=== PATIENT | male | born 1985 | race Hispanic/Latino ===

== ENCOUNTER 2016-09-28 11:56 | Inpatient (IN) | payer BC ==
--- NOTE | 2016-09-28 13:09 | ED PDOC ---
HPI: General Adult Time Seen by Provider: 09/28/16 12:32 Chief Complaint (Nursing): Fever Chief Complaint (Provider): Fever/Body Aches/Nausea/Headache History Per: Patient History/Exam Limitations: no limitations Onset/Duration Of Symptoms: Days (x3) Current Symptoms Are (Timing): Still Present Additional Complaint(s): Nate Marrero is a 31 year old male that presents to the ED with a chief complaint of a fever that e has been experiencing for the past three days, which was 103.5 degrees Fahrenheit at its highest point. Patient reports that this morning he also woke up with the "worst headache of his life," along with associated nausea, photophobia, and neck pain. Patient reports that his came to the ED a few days ago and was told that she may have viral meningitis, but deferred her lumbar puncture. Past Medical History Reviewed: Historical Data, Nursing Documentation, Vital Signs Vital Signs: Last Vital Signs Temp 98.4 F 09/28/16 14:07 Pulse 70 09/28/16 12:26 Resp 19 09/28/16 12:26 BP 123/64 09/28/16 12:26 Pulse Ox 99 09/28/16 13:13 - Family History Family History: States: Unknown Family Hx - Allergies Allergies/Adverse Reactions: Allergies Allergy/AdvReac Type Severity Reaction Status Date / Time No Known Allergies Allergy Verified 09/28/16 12:26 Review of Systems Constitutional: Positive for: Fever (highest temp 103.5, x3 days) Eyes: Positive for: Other (Photophobia) Gastrointestinal: Positive for: Nausea Musculoskeletal: Positive for: Neck Pain Neurological: Positive for: Headache Physical Exam - Reviewed Nursing Documentation Reviewed: Yes Vital Signs Reviewed: Yes - Physical Exam Appears: Positive for: Non-toxic, In Acute Distress Head Exam: Positive for: ATRAUMATIC, NORMOCEPHALIC Skin: Positive for: Normal Color, Warm Eye Exam: Positive for: Normal appearance Neck: Negative for: Normal ((+) nuchal rigidity) Cardiovascular/Chest: Positive for: Regular Rate, Rhythm. Negative for: Murmur Respiratory: Positive for: Normal Breath Sounds. Negative for: Wheezing Gastrointestinal/Abdominal: Positive for: Normal Exam, Soft. Negative for: Tenderness Neurologic/Psych: Positive for: Alert, Oriented. Negative for: Motor/Sensory Deficits - Laboratory Results Result Diagrams: 09/28/16 13:30 09/28/16 13:30 - ECG O2 Sat by Pulse Oximetry: 99 (RA) Pulse Ox Interpretation: Normal Medical Decision Making Medical Decision Making: Impression: Meningitis Plan: * Head CT w/o contrast * Chest X-Ray * CMP * CBC * Blood Culture * Flu Swab * Rapid Strep * Isolation Type Q12 * Morphine 4 mg IV * Zofran 4 mg IV Pt reports continued pain - Head CT negative. Toradol 15mg ordered. 1545 - Endorsed to Tony Gastelum PA-C and transferred to room 24. Scribe Attestation: Documented by Basilia Painter, acting as a scribe for Ila Polk PA-C. Provider Scribe Attestation: All medical record entries made by the Scribe were at my direction and personally dictated by me. I have reviewed the chart and agree that the record accurately reflects my personal performance of the history, physical exam, medical decision making, and the department course for this patient. I have also personally directed, reviewed, and agree with the discharge instructions and disposition. Disposition - Clinical Impression Clinical Impression: Fever - Patient ED Disposition Is Patient to be Admitted: Transfer of Care - Disposition Disposition: Transfer of Care Disposition Time: 15:58 Condition: STABLE
--- NOTE | 2016-09-28 13:29 | CT ---
PROCEDURE: CT HEAD WITHOUT CONTRAST. HISTORY: headache, neck pain COMPARISON: None available. TECHNIQUE: Axial computed tomography images were obtained through the head/brain without intravenous contrast. Radiation dose: Total exam DLP = 971.14 mGy-cm. This CT exam was performed using one or more of the following dose reduction techniques: Automated exposure control, adjustment of the mA and/or kV according to patient size, and/or use of iterative reconstruction technique. FINDINGS: HEMORRHAGE: No intracranial hemorrhage. BRAIN: No mass effect or edema. No atrophy or chronic microvascular ischemic changes.Please note that MRI with diffusion imaging is more sensitive in the detection of acute ischemic event. VENTRICLES: No hydrocephalus. CALVARIUM: Unremarkable. PARANASAL SINUSES: Unremarkable as visualized. No significant inflammatory changes. MASTOID AIR CELLS: Unremarkable as visualized. No inflammatory changes. OTHER FINDINGS: None. IMPRESSION: No acute intracranial pathology identified.
[2016-09-28] MEDS ORDERED: Sodium Chloride 0.9% 1,000 ML IV STA ×2 (13:32→17:12)
[2016-09-28 14:08] LABS: BASO % 0.4 % (0.0-2.0); EOS # 0.1 K/uL (0.0-0.7); EOS % 0.8 % (0.0-4.0); HEMATOCRIT 42.2 % (35.0-51.0); LYMPH # 0.6 K/uL (1.0-4.3); LYMPH % 8.7 % (20.0-40.0); MEAN CELL VOLUME 88.9 fl (80.0-94.0); MEAN CORPUSCULAR HEMOGLOBIN 30.5 pg (27.0-31.0); MEAN CORPUSCULAR HGB CONC 34.3 g/dL (33.0-37.0); MEAN PLATELET VOLUME 8.3 fl (7.2-11.7); MONO # 0.5 K/uL (0.0-0.8); MONO % 8.2 % (0.0-10.0); NEUT # 5.4 K/uL (1.8-7.0); NEUT % 81.9 % (50.0-75.0); PLATELET COUNT 193 K/uL (130-400); RED CELL DISTRIBUTION WIDTH 12.7 % (11.5-14.5); WHITE BLOOD COUNT 6.6 K/uL (4.8-10.8)
[2016-09-28 14:20] LABS: ALB/GLOB RATIO 1.5 (1.0-2.1); ALKALINE PHOSPHATASE 46 U/L (38-126); ALT/SGPT 47 U/L (21-72); AST/SGOT 32 U/L (17-59); BILIRUBIN,TOTAL 0.7 mg/dl (0.2-1.3); BLOOD UREA NITROGEN 11 mg/dl (9-20); CALCIUM 9.6 mg/dL (8.4-10.2); CARBON DIOXIDE 29 mmol/L (22-30); CHLORIDE 100 mmol/L (98-107); GFR AFRICAN-AMERICAN > 60; GLUCOSE,RANDOM 92 mg/dL (75-110); POTASSIUM 3.9 MMOL/L (3.6-5.0); SODIUM 141 mmol/l (132-148); TOTAL PROTEIN 8.2 G/DL (6.3-8.2)
--- NOTE | 2016-09-28 15:02 | RAD ---
HISTORY: fever COMPARISON: None available. TECHNIQUE: Chest, one view. FINDINGS: LUNGS: No focal consolidation. Please note that chest x-ray has limited sensitivity for the detection of pulmonary masses. PLEURA: No significant pleural effusion identified. No definite pneumothorax . CARDIOVASCULAR: The cardiomediastinal silhouette appears within normal limits of size. OSSEOUS STRUCTURES: No acute osseous abnormality identified. VISUALIZED UPPER ABDOMEN: Unremarkable. OTHER FINDINGS: None. IMPRESSION: No focal consolidation, significant pleural effusion, or definite pneumothorax identified.
[2016-09-28 15:10] LABS: NEUTROPHIL 82 % (42-75); TOTAL CELLS COUNTED 100
[2016-09-28 17:06] LABS: PARTIAL THROMBOPLASTIN TIME 31.6 Seconds (25.6-37.1)
--- NOTE | 2016-09-28 17:12 | ED PDOC ---
- Laboratory Results Result Diagrams: 09/28/16 13:30 09/28/16 13:30 - ECG O2 Sat by Pulse Oximetry: 99 (RA) - Progress ED Course And Treament: Written consent prior to lumbar puncture evaluation of CSF fluid. Morphine 4mg iv x 1 dose for pain Zofran 4 mg iv x 1 dose NS 1 liter second liter 500ml per hour CSF reviewed with Dr. Bey. Will start on Rocephin 2 gm iv x 1 dose; Acyclovir 800 mg iv x 1 dose d/w DR Balderrama. Will consult ID. Disposition - Clinical Impression Clinical Impression: Headache - POA Present On Arrival: None - Disposition Disposition: Admitted as In-Patient Disposition Time: 19:56 Condition: STABLE
[2016-09-28 18:04] LABS: FLUID TYPE SPINAL FLUID
[2016-09-28] MEDS ORDERED: cefTRIAXone (Rocephin) 1 gm Inj IVPB ONE (19:31)
[2016-09-28 19:34] LABS: CSF NEUTROPHIL 11 % (0-0); CSF TOTAL COUNT 100 (0-0)
[2016-09-28] MEDS ORDERED: cefTRIAXone 2 GM in Sodium Chloride 0.9% 100 ML IVPB ONE (20:00)
[2016-09-28] MEDS ORDERED: Oxycodone/Acetaminophen 5/325 mg Tab PO PRN (21:32)
[2016-09-28] MEDS ORDERED: AMPHETAMINE SALT COMBINATION 10 MG TAB PO SCH (21:45)
[2016-09-28 22:24] LABS: H INFLUENZAE B NEGATIVE (NEGATIVE); N MENINGITIS ACY/W135 NEGATIVE (NEGATIVE); N MENINGITIS B/ECOLI K1 NEGATIVE (NEGATIVE)
[2016-09-28] MEDS ORDERED: Oxycodone/Acetaminophen 5/325 mg Tab PO ONE (23:09)
[2016-09-29] MEDS ORDERED: Oxycodone/Acetaminophen 5/325 mg Tab PO SCH (01:00)
[2016-09-29] MEDS: Oxycodone/Acetaminophen 5/325 mg Tab PO PRN ×4 (04:03→18:43)
[2016-09-29 05:28] LABS: BASO % 0.3 % (0.0-2.0); EOS % 0.3 % (0.0-4.0); HEMATOCRIT 38.2 % (35.0-51.0); LYMPH # 0.7 K/uL (1.0-4.3); LYMPH % 12.3 % (20.0-40.0); MEAN CELL VOLUME 88.7 fl (80.0-94.0); MEAN CORPUSCULAR HEMOGLOBIN 29.7 pg (27.0-31.0); MEAN CORPUSCULAR HGB CONC 33.5 g/dL (33.0-37.0); MEAN PLATELET VOLUME 7.4 fl (7.2-11.7); MONO # 0.6 K/uL (0.0-0.8); NEUT # 4.7 K/uL (1.8-7.0); NEUT % 77.1 % (50.0-75.0); RED CELL DISTRIBUTION WIDTH 12.6 % (11.5-14.5); WHITE BLOOD COUNT 6.1 K/uL (4.8-10.8)
[2016-09-29 05:42] LABS: ALB/GLOB RATIO 1.4 (1.0-2.1); ALKALINE PHOSPHATASE 38 U/L (38-126); ALT/SGPT 38 U/L (21-72); AST/SGOT 19 U/L (17-59); BILIRUBIN,TOTAL 0.3 mg/dl (0.2-1.3); BLOOD UREA NITROGEN 8 mg/dl (9-20); CALCIUM 8.2 mg/dL (8.4-10.2); CARBON DIOXIDE 26 mmol/L (22-30); CHLORIDE 103 mmol/L (98-107); GFR AFRICAN-AMERICAN > 60; GLUCOSE,RANDOM 108 mg/dL (75-110); POTASSIUM 3.5 MMOL/L (3.6-5.0); SODIUM 138 mmol/l (132-148); TOTAL PROTEIN 6.2 G/DL (6.3-8.2)
--- NOTE | 2016-09-29 17:02 | CON ---
DATE: 09/29/2016 INFECTIOUS DISEASE CONSULTATION LOCATION: The patient is being seen in the intensive care unit. HISTORY OF PRESENT ILLNESS: He is a 31-year-old male that came to the Emergency Room with a chief complaint of fever that he has been having since Tuesday of this week and apparently was 103.5 at its highest, AND was accompanied with fever and chills and some nausea. Of significance is that he states that the headache that he has is the worst headache he has ever had in his life. He also complained about some neck pain and photophobia. Of significance is that his had a similar episode, was seen in the Emergency Room at [facility], but declined to have a spinal tap done at that time, and was told that she may have a viral meningitis. 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 Apparently she is fine now without any treatment and back teaching. PHYSICAL EXAMINATION: GENERAL: The patient is awake and alert, but trying not to keep this eyes open because he says the light bothers him and, when I shine the light into his eyes , he does have some significant photophobia. HEENT: Mouth is within normal limits. There is no evidence of bacterial pharyngitis. NECK: Painful with movement and it hurts when he brings his chin to his chest wall. There is no significant adenopathy. LUNGS: Clear. HEART: Regular sinus rhythm. ABDOMEN: Soft, positive bowel sounds. No organomegaly. EXTREMITIES: Within normal limits. LABORATORY DATA: Microbiology is pending. Gram stain of spinal fluid shows no growth after 48 hours and the blood cultures show no growth after 48 hours. His white count is 6.1, hemoglobin 12.8. He has 81%, almost 82%, polys, 8.2% lymphs, and on the second CBC he has 77.1 polys and 12.3 lymphs. On his chemistries, GFR greater than 60, creatinine is 0.8, BUN is 8. His CSF spinal fluid volume was 3, CSF appearance is colorless, WBCs are 82, with 1 RBC. CSF total cell count was 100, neutrophils 11, lymphocytes 77, and monos with 12. CSF glucose is 50 and his protein was 69%, which is high. Serology bacterial antigens were all negative. RADIOLOGY: Chest x-ray: No focal consolidation, significant pleural effusion, or definite pneumothorax. CT scan of the head: No intracranial hemorrhage, no mass effect or edema, no atrophy or chronic microvascular issue. In general, it is no acute intracranial pathology identified. I forgot to put microvascular ischemic changes. ASSESSMENT AND PLAN: At this point in time, I do feel some concern that he does have 11 polys in his cerebrospinal fluid. I will continue treatment with acyclovir and IV Rocephin. Await further cultures prior to making a decision as to whether the patient can be discharged or continue treatment. Marcelino Mclaughlin MD cc: [id number] TT: 09/29/2016 17:02:11 Confirmation # [id number] Dictation # [id number] dn MTDD
[2016-09-29] MEDS ORDERED: cefTRIAXone 2 GM in Sodium Chloride 0.9% 100 ML IVPB SCH (21:00)
[2016-09-30] MEDS: Oxycodone/Acetaminophen 5/325 mg Tab PO PRN ×2 (00:01→07:17)
--- NOTE | 2016-09-30 08:41 | CP.PCM.HP ---
History of Present Illness - History of Present Illness History of Present Illness: This is a 31 y/o male admitted for low grade fever, intractable headaches, sinus headaches and body aches for the past few days. Spinal tap showed WBC 82 Neut 1 Lymp 73 and protein 69 he was admitted to ICU on precautions with dx of viral meningitis. Past Patient History - Past Medical History & Family History Past Medical History?: Yes - Past Social History Smoking Status: Never Smoked - CARDIAC Hx Angina: No - PULMONARY Hx Respiratory Disorders: No - HEENT Hx HEENT Problems: Yes - RENAL Hx Chronic Kidney Disease: No - ENDOCRINE/METABOLIC Hx Endocrine Disorders: No - HEMATOLOGICAL/ONCOLOGICAL Hx Blood Disorders: No - INTEGUMENTARY Hx Dermatological Problems: No - MUSCULOSKELETAL/RHEUMATOLOGICAL Hx Musculoskeletal Disorders: No - GASTROINTESTINAL Hx Gastrointestinal Disorders: No - PSYCHIATRIC Hx Psychophysiologic Disorder: Yes - SURGICAL HISTORY Hx Surgeries: Yes Other/Comment: Left foot tendon repair. - ANESTHESIA Hx Anesthesia: Yes Hx Anesthesia Reactions: No Hx Malignant Hyperthermia: No Has any member of the family had a problem w/ anesthesia?: No Meds Allergies/Adverse Reactions: Allergies Allergy/AdvReac Type Severity Reaction Status Date / Time No Known Allergies Allergy Verified 09/28/16 12:26 Results - Vital Signs Recent Vital Signs: Last Vital Signs Temp 97.5 F L 09/30/16 07:42 Pulse 70 09/30/16 06:07 Resp 18 09/30/16 06:07 BP 124/74 09/30/16 06:07 Pulse Ox 96 09/29/16 20:40 - Labs Result Diagrams: 09/29/16 05:00 09/29/16 05:00 Labs: Laboratory Results - last 24 hr 09/29/16 05:00 ESR 15
[2016-09-30] MEDS: cefTRIAXone 2 GM in Sodium Chloride 0.9% 100 ML IVPB SCH (08:51)
[2016-09-30 15:20] LABS: HSV 2 DNA Not Detected (Not Detected); SPECIMEN SOURCE CSF
--- NOTE | 2016-09-30 18:02 | CP.PCM.PN ---
Subjective - Date & Time of Evaluation Date of Evaluation: 09/30/16 Time of Evaluation: 07:00 - Subjective Subjective: Patient seen and examined at bedside with attending. 31M reports improved symptoms, but still with headache w/o photophobia. Otherwise he denies any SOB, chest pain , fever, chills, N/V, extremity weakness. Objective - Vital Signs/Intake and Output Vital Signs (last 24 hours): Temp Pulse Resp BP Pulse Ox 36.6 C 51 L 18 116/80 99 09/30/16 16:08 09/30/16 16:08 09/30/16 16:08 09/30/16 16:08 09/30/16 16:08 Intake and Output: 09/30/16 09/30/16 06:59 18:59 Intake Total 850 Output Total 1100 Balance -250 - Medications Medications: Current Medications Acetaminophen (Tylenol 325mg Tab) 650 mg PO Q4 PRN PRN Reason: Headache Last Admin: 09/30/16 11:20 Dose: 650 mg Amphetamine/Dextroamphetamine (Adderall) 10 mg PO ASDIR [facility] Acyclovir 800 mg/ Sodium (Chloride) 250 mls @ 250 mls/hr IV Q8 [facility] Last Admin: 09/30/16 08:52 Dose: 250 mls/hr Ceftriaxone Sodium 2 gm/ (Sodium Chloride) 100 mls @ 100 mls/hr IVPB DAILY [facility] Last Admin: 09/30/16 08:51 Dose: 100 mls/hr Ibuprofen (Motrin Tab) 600 mg PO Q6 [facility] Last Admin: 09/30/16 15:50 Dose: 600 mg Ondansetron HCl (Zofran Inj) 4 mg IVP Q6 PRN PRN Reason: Nausea/Vomiting Last Admin: 09/30/16 10:32 Dose: 4 mg Pantoprazole Sodium (Protonix Inj) 40 mg IVP DAILY [facility] Last Admin: 09/30/16 08:50 Dose: 40 mg Sertraline HCl (Zoloft) 50 mg PO DAILY [facility] Last Admin: 09/30/16 08:52 Dose: 50 mg Trazodone HCl (Desyrel) 50 mg PO HS PRN PRN Reason: Insomnia - Labs Labs: 09/29/16 05:00 09/29/16 05:00 PT 11.8 Seconds (9.8-13.1) 09/28/16 16:35 INR 1.0 (0.9-1.2) 09/28/16 16:35 APTT 31.6 Seconds (25.6-37.1) 09/28/16 16:35 - Constitutional Appears: Well, Non-toxic, No Acute Distress - Head Exam Head Exam: ATRAUMATIC, NORMAL INSPECTION - Eye Exam Eye Exam: EOMI, PERRL - ENT Exam ENT Exam: Mucous Membranes Moist, Normal Exam - Neck Exam Neck Exam: Full ROM, Normal Inspection. absent: Tenderness - Respiratory Exam Respiratory Exam: Clear to Ausculation Bilateral, NORMAL BREATHING PATTERN. absent: Rales, Wheezes - Cardiovascular Exam Cardiovascular Exam: REGULAR RHYTHM. absent: JVD - GI/Abdominal Exam GI & Abdominal Exam: Soft, Normal Bowel Sounds. absent: Tenderness - Neurological Exam Neurological Exam: Alert, Awake, Oriented x3 - Psychiatric Exam Psychiatric exam: Normal Affect, Normal Mood - Skin Skin Exam: Normal Color, Warm Assessment and Plan (1) Meningitis Assessment & Plan: Cultures still pending, but suspect viral origin at this time. Symptoms have significantly improved. - ID Consult: c/w dual coverage until LP results - Tylenol/Ibuprofen for headache - Regular diet - Isolation - Transfer to Med/Surg Status: Acute
--- NOTE | 2016-09-30 19:22 | CP.PCM.PN ---
Subjective - Date & Time of Evaluation Date of Evaluation: 09/30/16 Time of Evaluation: 19:13 - Subjective Subjective: I D NOTE BACTERIAL ANTIGENS ARE ALL NEGATIVE FOR CSF ARE VIRAL(HSV I & II) CSF CULTURES ARE NEGATIVE FOR BACTERIA BLOOD CULTURES ARE NEGATIVE ALSO CONSISTENT C VIRAL DISEASE I AM CONCERNED THAT HE STLL HAS HEADACHE , POSSIBLY RELATED TO LP? WOULD DISCHARGE ON VALTREX 1 GM PO BID DISCUSSED IN DETAIL ALL FINDINGS AND ANSWERED ALL OF HIS QUESTIONS IF HE STILL HAS HEADACHE TOMORROW WOULD HAVE NEUROLOGY SEE Objective - Vital Signs/Intake and Output Vital Signs (last 24 hours): Temp Pulse Resp BP Pulse Ox 97.9 F 51 L 18 116/80 99 09/30/16 16:08 09/30/16 16:08 09/30/16 16:08 09/30/16 16:08 09/30/16 16:08 - Medications Medications: Current Medications Acetaminophen (Tylenol 325mg Tab) 650 mg PO Q4 PRN PRN Reason: Headache Last Admin: 09/30/16 18:42 Dose: 650 mg Amphetamine/Dextroamphetamine (Adderall) 10 mg PO ASDIR [facility] Acyclovir 800 mg/ Sodium (Chloride) 250 mls @ 250 mls/hr IV Q8 [facility] Last Admin: 09/30/16 18:30 Dose: 250 mls/hr Ceftriaxone Sodium 2 gm/ (Sodium Chloride) 100 mls @ 100 mls/hr IVPB DAILY [facility] Last Admin: 09/30/16 08:51 Dose: 100 mls/hr Ibuprofen (Motrin Tab) 600 mg PO Q6 [facility] Last Admin: 09/30/16 15:50 Dose: 600 mg Ondansetron HCl (Zofran Inj) 4 mg IVP Q6 PRN PRN Reason: Nausea/Vomiting Last Admin: 09/30/16 10:32 Dose: 4 mg Pantoprazole Sodium (Protonix Inj) 40 mg IVP DAILY [facility] Last Admin: 09/30/16 08:50 Dose: 40 mg Sertraline HCl (Zoloft) 50 mg PO DAILY [facility] Last Admin: 09/30/16 08:52 Dose: 50 mg Trazodone HCl (Desyrel) 50 mg PO HS PRN PRN Reason: Insomnia - Labs Labs: 09/29/16 05:00 09/29/16 05:00 PT 11.8 Seconds (9.8-13.1) 09/28/16 16:35 INR 1.0 (0.9-1.2) 09/28/16 16:35 APTT 31.6 Seconds (25.6-37.1) 09/28/16 16:35
[2016-10-01] MEDS ORDERED: Oxycodone/Acetaminophen 5/325 mg Tab PO STA (07:08)
[2016-10-01] MEDS: cefTRIAXone 2 GM in Sodium Chloride 0.9% 100 ML IVPB SCH (09:48)
[2016-10-01 11:30] LABS: BASO % 0.6 % (0.0-2.0); EOS % 0.7 % (0.0-4.0); HEMATOCRIT 39.7 % (35.0-51.0); LYMPH # 0.7 K/uL (1.0-4.3); LYMPH % 16.9 % (20.0-40.0); MEAN CELL VOLUME 87.3 fl (80.0-94.0); MEAN CORPUSCULAR HEMOGLOBIN 30.1 pg (27.0-31.0); MEAN CORPUSCULAR HGB CONC 34.5 g/dL (33.0-37.0); MEAN PLATELET VOLUME 7.4 fl (7.2-11.7); MONO # 0.5 K/uL (0.0-0.8); MONO % 12.6 % (0.0-10.0); NEUT # 2.7 K/uL (1.8-7.0); NEUT % 69.2 % (50.0-75.0); NRBC % 0.2 % (0.0-0.0); RED CELL DISTRIBUTION WIDTH 12.5 % (11.5-14.5); WHITE BLOOD COUNT 3.9 K/uL (4.8-10.8)
[2016-10-01 11:31] LABS: ALB/GLOB RATIO 1.4 (1.0-2.1); ALKALINE PHOSPHATASE 41 U/L (38-126); ALT/SGPT 39 U/L (21-72); AST/SGOT 17 U/L (17-59); BILIRUBIN,TOTAL 0.3 mg/dl (0.2-1.3); BLOOD UREA NITROGEN 4 mg/dl (9-20); CALCIUM 9.1 mg/dL (8.4-10.2); CARBON DIOXIDE 29 mmol/L (22-30); CHLORIDE 103 mmol/L (98-107); GFR AFRICAN-AMERICAN > 60; GLUCOSE,RANDOM 97 mg/dL (75-110); POTASSIUM 3.8 MMOL/L (3.6-5.0); SODIUM 142 mmol/l (132-148); TOTAL PROTEIN 6.9 G/DL (6.3-8.2)
[2016-10-01] MEDS ORDERED: Dexamethasone 10 MG in Dextrose 5% In Water 50 ML IV ONE (12:30)
[2016-10-01] MEDS ORDERED: Magnesium Sulfate 2 gm/50 ml 2 GM/50 ML BAG IVPB ONE (12:33)
--- NOTE | 2016-10-01 12:46 | CP.PCM.CON ---
History of Present Illness - History of Present Illness History of Present Illness: Mr. Marrero is a 31-year-old man who was recently treated for viral meningitis after an LP on the 09/28/16 demonstrated elevated WBCs in the CSF consistent with a viral etiology. He was placed on Acyclovir and initially on antibiotics as well. Now, the patient is complaining of a headache that gets worse when he sits up and improves when he lays flat. This is described as occipital in location, and sometimes bifrontal and has a throbbing/pulsating quality. He does not complain of nausea, vomiting, photophobia, phonophobia, diplopia or sensory/motor deficits. Review of Systems - Review of Systems All systems: reviewed and no additional remarkable complaints except Past Patient History - Past Medical History & Family History Past Medical History?: Yes - Past Social History Smoking Status: Never Smoked - CARDIAC Hx Angina: No - PULMONARY Hx Respiratory Disorders: No - HEENT Hx HEENT Problems: Yes - RENAL Hx Chronic Kidney Disease: No - ENDOCRINE/METABOLIC Hx Endocrine Disorders: No - HEMATOLOGICAL/ONCOLOGICAL Hx Blood Disorders: No - INTEGUMENTARY Hx Dermatological Problems: No - MUSCULOSKELETAL/RHEUMATOLOGICAL Hx Musculoskeletal Disorders: No - GASTROINTESTINAL Hx Gastrointestinal Disorders: No - PSYCHIATRIC Hx Psychophysiologic Disorder: Yes - SURGICAL HISTORY Hx Surgeries: Yes Other/Comment: Left foot tendon repair. - ANESTHESIA Hx Anesthesia: Yes Hx Anesthesia Reactions: No Hx Malignant Hyperthermia: No Has any member of the family had a problem w/ anesthesia?: No Meds Allergies/Adverse Reactions: Allergies Allergy/AdvReac Type Severity Reaction Status Date / Time No Known Allergies Allergy Verified 09/28/16 12:26 - Medications Medications: Current Medications Acetaminophen (Tylenol 325mg Tab) 650 mg PO Q4 PRN PRN Reason: Headache Last Admin: 10/01/16 05:15 Dose: 650 mg Amphetamine/Dextroamphetamine (Adderall) 10 mg PO ASDIR [facility] Acyclovir 800 mg/ Sodium (Chloride) 250 mls @ 250 mls/hr IV Q8 [facility] Last Admin: 10/01/16 09:49 Dose: 250 mls/hr Dexamethasone 10 mg/ Dextrose 51 mls @ 100 mls/hr IV ONCE ONE Stop: 10/01/16 12:59 Magnesium Sulfate (Magnesium Sulfate 2 Gm/50 Ml Water) 2 gm in 50 mls @ 50 mls/ hr IVPB ONCE ONE PRN Reason: 2 GM/HR Stop: 10/01/16 13:32 Ibuprofen (Motrin Tab) 800 mg PO Q8H [facility] Ondansetron HCl (Zofran Inj) 4 mg IVP Q6 PRN PRN Reason: Nausea/Vomiting Last Admin: 10/01/16 12:37 Dose: 4 mg Pantoprazole Sodium (Protonix Inj) 40 mg IVP DAILY [facility] Last Admin: 10/01/16 09:48 Dose: 40 mg Sertraline HCl (Zoloft) 50 mg PO DAILY [facility] Last Admin: 10/01/16 09:49 Dose: 50 mg Topiramate (Topamax) 25 mg PO BID [facility] Trazodone HCl (Desyrel) 50 mg PO HS PRN PRN Reason: Insomnia Last Admin: 09/30/16 21:58 Dose: 50 mg Physical Exam - Constitutional Appears: Well - Head Exam Head Exam: ATRAUMATIC, NORMAL INSPECTION, NORMOCEPHALIC - Eye Exam Eye Exam: EOMI, Normal appearance, PERRL - ENT Exam ENT Exam: Mucous Membranes Moist, Normal Exam - Neck Exam Neck exam: Positive for: Normal Inspection - Respiratory Exam Respiratory Exam: Clear to Auscultation Bilateral, NORMAL BREATHING PATTERN - Cardiovascular Exam Cardiovascular Exam: REGULAR RHYTHM, +S1, +S2 - GI/Abdominal Exam GI & Abdominal Exam: Normal Bowel Sounds, Soft. absent: Tenderness - Rectal Exam Rectal Exam: Deferred - Extremities Exam Extremities exam: Positive for: normal inspection - Back Exam Back exam: NORMAL INSPECTION - Neurological Exam Neurological exam: Alert, CN II-XII Intact, Normal Gait, Oriented x3, Reflexes Normal - Expanded Neurological Exam Expanded Patient oriented to: person, place, time Cranial nerves: EOM's Intact: Normal, Facial Palsey w/o Forehead Movement: Normal, Facial Sensation: Normal Ataxia: No Cerebellar Function: Finger to Nose: Normal Upper motor neuron: Babinski Sign: Normal Sensory exam: Lower Extremity 2 Point Discrimination: Normal, Lower Extremity Light Touch: Normal, Lower Extremity Pin Prick: Normal, Lower Extremity Temperature: Normal, Upper Extremity 2 Point Discrimination: Normal, Upper Extremity Light Touch: Normal, Upper Extremity Pin Prick: Normal, Upper Extremity Temperature: Normal Neuro motor strength exam: Left Upper Extremity: 5, Right Upper Extremity: 5, Left Lower Extremity: 5, Right Lower Extremity: 5 DTR: Achilles Tendon Left: 2+, Achilles Tendon Right: 2+, Bicep Left: 2+, Bicep Right: 2+, Brachioradialis Left: 2+, Brachioradialis Right: 2+, Patellar Left: 2 +, Patellar Right: 2+, Tricep Left: 2+, Tricep Right: 2+ - Psychiatric Exam Psychiatric exam: Normal Affect, Normal Mood - Skin Skin Exam: Dry, Intact, Normal Color, Warm Results - Vital Signs Recent Vital Signs: Last Vital Signs Temp 98.6 F 10/01/16 09:00 Pulse 56 L 10/01/16 09:00 Resp 20 10/01/16 09:00 BP 105/67 10/01/16 09:00 Pulse Ox 96 10/01/16 09:00 - Labs Result Diagrams: 10/01/16 10:40 10/01/16 10:40 Labs: Laboratory Results - last 24 hr 10/01/16 10/01/16 10/01/16 10:40 10:40 10:40 WBC 3.9 L RBC 4.55 Hgb 13.7 Hct 39.7 MCV 87.3 MCH 30.1 MCHC 34.5 RDW 12.5 Plt Count 202 MPV 7.4 Neut % (Auto) 69.2 Lymph % (Auto) 16.9 L [place] % (Auto) 12.6 H Eos % (Auto) 0.7 Baso % (Auto) 0.6 Neut # 2.7 Lymph # 0.7 L [place] # 0.5 Eos # 0.0 Baso # 0.0 ESR 20 H PT 12.0 INR 1.1 Sodium 142 Potassium 3.8 Chloride 103 Carbon Dioxide 29 Anion Gap 14 BUN 4 L Creatinine 0.8 Est GFR ( Amer) > 60 Est GFR (Non-Af Amer) > 60 Random Glucose 97 Calcium 9.1 Total Bilirubin 0.3 AST 17 ALT 39 Alkaline Phosphatase 41 Total Protein 6.9 Albumin 4.1 Globulin 2.9 Albumin/Globulin Ratio 1.4 - Imaging and Cardiology CT scan - head Status: Image reviewed by me, Report reviewed by me (No acute findings) Assessment & Plan (1) Headache Assessment and Plan: Likely due to intracranial hypotension. Advised to drip 2-3 liters of water daily. Would like to give caffeine/sodium benzoate 500 mg IV once, but this is not available on formulary. Will treat potential inflammation with decadron 10 mg IV once, and also give magnesium sulfate 2 grams IV once. Continue conservative management. Thank you. Status: Acute Priority: High
--- NOTE | 2016-10-01 16:36 | CP.PCM.PN ---
Subjective - Date & Time of Evaluation Date of Evaluation: 10/01/16 Time of Evaluation: 07:00 - Subjective Subjective: Patient seen and examined at bedside with attending. 31M still with c/o 8/10 headache despite meningitis treatment and adequate oral hydration. Otherwise he denies any SOB, chest pain , fever, chills, N/V, extremity weakness, photophobia. Objective - Vital Signs/Intake and Output Vital Signs (last 24 hours): Temp Pulse Resp BP Pulse Ox 36.8 C 44 L 20 120/79 100 10/01/16 16:05 10/01/16 16:05 10/01/16 16:05 10/01/16 16:05 10/01/16 16:05 - Medications Medications: Current Medications Acetaminophen (Tylenol 325mg Tab) 650 mg PO Q4 PRN PRN Reason: Headache Last Admin: 10/01/16 05:15 Dose: 650 mg Amphetamine/Dextroamphetamine (Adderall) 10 mg PO ASDIR GINA Acyclovir 800 mg/ Sodium (Chloride) 250 mls @ 250 mls/hr IV Q8 GINA Last Admin: 10/01/16 09:49 Dose: 250 mls/hr Ibuprofen (Motrin Tab) 800 mg PO Q8 PRN PRN Reason: Pain, moderate (4-7) Ondansetron HCl (Zofran Inj) 4 mg IVP Q6 PRN PRN Reason: Nausea/Vomiting Last Admin: 10/01/16 12:37 Dose: 4 mg Pantoprazole Sodium (Protonix Inj) 40 mg IVP DAILY [facility] Last Admin: 10/01/16 09:48 Dose: 40 mg Sertraline HCl (Zoloft) 50 mg PO DAILY [facility] Last Admin: 10/01/16 09:49 Dose: 50 mg Trazodone HCl (Desyrel) 50 mg PO HS PRN PRN Reason: Insomnia Last Admin: 09/30/16 21:58 Dose: 50 mg - Labs Labs: 10/01/16 10:40 10/01/16 10:40 PT 12.0 Seconds (9.8-13.1) 10/01/16 10:40 INR 1.1 (0.9-1.2) 10/01/16 10:40 APTT 31.6 Seconds (25.6-37.1) 09/28/16 16:35 - Constitutional Appears: Well, Non-toxic, In Acute Distress (Headaches) - Head Exam Head Exam: ATRAUMATIC, NORMAL INSPECTION - Eye Exam Eye Exam: EOMI, PERRL - ENT Exam ENT Exam: Mucous Membranes Moist, Normal Exam - Neck Exam Neck Exam: Full ROM (Supple), Normal Inspection - Respiratory Exam Respiratory Exam: Clear to Ausculation Bilateral, NORMAL BREATHING PATTERN. absent: Rales, Wheezes - Cardiovascular Exam Cardiovascular Exam: REGULAR RHYTHM. absent: JVD - GI/Abdominal Exam GI & Abdominal Exam: Soft, Normal Bowel Sounds. absent: Tenderness - Extremities Exam Extremities Exam: Full ROM, Normal Capillary Refill - Neurological Exam Neurological Exam: Alert, Awake, Oriented x3 - Psychiatric Exam Psychiatric exam: Anxious, Normal Mood - Skin Skin Exam: Normal Color, Warm Assessment and Plan (1) Meningitis Assessment & Plan: Cultures negative for bacterial growth, ID recommend Valtrex at discharge. Headaches have worsened and suspect "spinal headache". Otherwise, meningeal symptoms have resolved - Neuro Consult: Decadron 10mg, IV, x1; Mg Sulfate 2g, IV x1 - ID Consult: d/c on Valtrex 1g, BID - Tylenol/Ibuprofen for headache PRN - Regular diet - Possible d/c 10/02 Status: Acute
[2016-10-02 07:48] VITALS: BP 117/75
[2016-10-02] MEDS ORDERED: Dexamethasone 10 MG in Sodium Chloride 0.9% 50 ML IVPB STA (07:55)
[2016-10-02 08:05] VITALS: PULSE 62; RESP 19; TEMP 98.1; O2SAT 98
== END 2016-10-02 11:53 | disposition home or self-care (01) | DRG 76 ==
LOC: H.ER 11:56 → H.ERHOLD 19:59 → H.ICU/CCU 23:58 → H.MEDSURG1 09-30 12:17
PROVIDERS: ADMIT Family Medicine; ATTEND Family Medicine
DX: A87.9 Viral meningitis, unspecified (principal); I95.89 Other hypotension